=== PATIENT | male | born 1950 | race Caucasian/White ===

== ENCOUNTER 2017-07-25 10:25 | Day surgery (SDC) | payer MEDICARE ==
[~2017-07-25] VITALS: Ht 182.9 cm; Wt 97.4 kg
[~2017-07-25 10:25] MED LIST: CARV12.52 PO; GEMF600T PO; HYDR12.56 PO; LISI-366 PO
[2017-07-25] MEDS ORDERED: NS 1000 ML IV SCH (10:45)
[2017-07-25] MEDS ORDERED: MUPIROCIN 2% OINT 1 APPLIC/GM SYR NASAL SCH (10:45)
[2017-07-25] MEDS ORDERED: POVIDONE IODINE 5% (ANTISEPSIS KIT) 4 APPLICATIONS EACH NARE SCH (10:45)
[2017-07-25] MEDS ORDERED: CHLORHEXIDINE GLUCONATE 2 % 1 PACK (2 CLOTHS) TOPICAL SCH (10:45)
[2017-07-25] MEDS ORDERED: ceFAZolin 2 GM PREMIX 50 ML IV SCH (10:45)
[2017-07-25 11:00] VITALS: BP 177/103; PULSE 72; RESP 18; TEMP 98.1; O2SAT 97
[2017-07-25] MEDS ORDERED: METOPROLOL TARTRATE 25 MG TAB PO PRN (11:00)
[2017-07-25] MEDS ORDERED: HYDR25TA5 PO (11:08)
[2017-07-25] MEDS ORDERED: XARE20TA PO (11:08)
[2017-07-25] MEDS ORDERED: CARV12.52 PO (11:08)
[2017-07-25] MEDS ORDERED: LISI40TA PO (11:08)
[2017-07-25 11:18] LABS: AUTOMATED NEUTROPHIL # 7.2 TH/MM3 (1.8-7.7); BASOPHIL # 0.1 TH/MM3 (0-0.2); BASOPHIL % 0.7 % (0.0-2.0); EOSINOPHIL # 0.2 TH/MM3 (0-0.4); EOSINOPHIL % 1.7 % (0.0-4.0); HEMATOCRIT 44.8 % (39.0-51.0); HEMOGLOBIN 15.4 GM/DL (13.0-17.0); LYMPH % 12.7 % (9.0-44.0); LYMPHOCYTE # 1.2 TH/MM3 (1.0-4.8); MEAN CORPUSCULAR HEMOGLOBIN 31.4 PG (27.0-34.0); MEAN CORPUSCULAR HGB CONC 34.4 % (32.0-36.0); MEAN PLATELET VOLUME 8.2 FL (7.0-11.0); MONOCYTE # 0.7 TH/MM3 (0-0.9); NEUT % 76.9 % (16.0-70.0); PLATELET COUNT 184 TH/MM3 (150-450); RED BLOOD COUNT 4.92 MIL/MM3 (4.50-5.90); RED CELL DISTRIBUTION WIDTH 13.3 % (11.6-17.2); WHITE BLOOD COUNT 9.4 TH/MM3 (4.0-11.0)
[2017-07-25 11:32] LABS: BICARBONATE 29.7 MEQ/L (21.0-32.0); CALCIUM 9.1 MG/DL (8.5-10.1); CREATININE 0.97 MG/DL (0.60-1.30)
[2017-07-25] MEDS ORDERED: PROPOFOL 200 MG/20 ML AMP IV ONE (12:00)
[2017-07-25] MEDS ORDERED: LIDOCAINE HCL 1% PF 5 ML SYRINGE OTHER ONE (12:00)
[2017-07-25] MEDS ORDERED: MIDAZOLAM HCL 2 MG/2 ML VIAL ONE ×2 (13:23→15:03)
[2017-07-25] MEDS ORDERED: GENTAMICIN SULFATE 80 MG/2 ML VIAL ONE (13:29)
[2017-07-25] MEDS ORDERED: SODIUM CHLOR 0.9% 250 ML INJ 250 ML ONE ×2 (13:29→13:36)
[2017-07-25] MEDS ORDERED: ceFAZolin INJ 1,000 MG VIAL ONE (13:29)
[2017-07-25] MEDS ORDERED: LIDOCAINE HCL 2% 50 ML VIAL ONE (13:29)
[2017-07-25] MEDS ORDERED: VANCOMYCIN HCL 1000 MG VIAL ONE ×2 (13:29→13:36)
[2017-07-25] MEDS ORDERED: PROPOFOL 200 MG/20 ML AMP ONE (14:37)
--- NOTE | 2017-07-25 15:16 | CATHPROC ---
Patient Name: KYLE GROSS Study #: [id number] Initial MD: Jony Garcia Date of : 1950 Study Date: 07/25/2017 Cardiac Catheterization Report 07/25/2017 3:17:41 PM Financial #: [id number] 1 of 7 Patient Name: KYLE GROSS Study #: [id number] Initial MD: Jony Garcia Date of : 1950 Study Date: 07/25/2017 Entire Case Report Patient Information Patient Name KYLE GROSS Date of 1950 Age 67 years Financial # [id number] Gender M AlternateID Lab Number 6 Room Number DC02 Height (in) 72.0 Height (cm) 182.8 BSA 2.20 Weight (lbs) 214.3 Weight (kg) 97.4 Patient Address/Phone Number Home Address [facility] Home Phone Number [phone] [facility] [address] [place], [place] [id number] Study Information Study Number Admission Scheduled Start Study Start [id number] Jul 25 2017 10:25AM 07/25/2017 Jul 25 2017 1:02PM [place] [facility] Cardiac Pacer/ICD Admit Source Facility Department Other [facility] Physician and Clinical Staff Initial Jony Bojorquez Counter Former Raulito Bailey,RT(R) Other Anesthesia, FIRMWARE ENGINEER Recorder Poly Torres,SETH Scrub Judi Gutierrez RCIS 07/25/2017 3:17:41 PM Financial #: [id number] 2 of 7 Patient Name: KYLE GROSS Study #: [id number] Initial MD: Jony Garcia Date of : 1950 Study Date: 07/25/2017 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 Description Size Mfg Part Number Used/Scraped [id number] 13:04 [employer] DRAPE, IOBAN 2 [id number] 26cm x 20cm Used *[id number]-1103 13:04 [employer] SUTURE, STRIP PLUS 1/2" * Used *[id number] 13:04 MEDLINE PACER ADHESIVE, MASTISOL 2/3CC 2/3CC 0523-48 Used 13:04 MEDLINE PACER OAKLEY, LIMB * 2530 *[id number] Used [id number] 13:04 MEDLINE PACER PACK, PACER CUSTOM * Used *[id number] 13:04 MEDLINE PACER PEN, SKIN DUAL W/ RULER * Used *[id number] 13:42 Needle Sponge Count 1 111 Used 13:41 Needle Sponge Count 2 2 Used 13:41 Needle Sponge Count 25 1 Used 14:14 Needle Sponge Count 35 Used [id number] *94625 SUTURE, 2-0 VICRYL [CT1] ([id number]) SUTURE, 2-0 VICRYL [CT1] (YYQ350D) SUTURE, 4-0 VICRYL [PS2] (BAK197Q) [id number] 13:04 [employer] BL[employer]ET,WARM AIR CCL * Used *[id number] 14:27 [employer] MEDICAL DEFIBRILLATOR, UNIFY ASSURA VVED-DDDRV [id number] Used [facility] PAD, ELECTROSURGICAL 13:04 * [id number] *[id number] Used [employer]GICAL GROUNDING ORANGE [id number] 13:04 [employer] PAULINO. / * Used *41723 Equipment Model, Serial, Lot Number and Expiration Data Description Model Number Serial Number Lot Number Expiration Date DEFIBRILLATOR, UNIFY ASSURA [id number] 01-31-2019 Insurance Information Insurance Payor Medicare, Private Health Insurance Third Democrat Third Democrat Number MEDICARE A B MCRAB History: Risk Factors Hypertension Dyslipidemia Yes Yes Labs 07/25/2017 3:17:41 PM Financial #: [id number] 3 of 7 Patient Name: KYLE GROSS Study #: [id number] Initial MD: Jnoy Garcia Date of : 1950 Study Date: 07/25/19 18 Hgb (g/dl) Hct (%) RBC (MIL/MM3) WBC (l/cumm) Platelets (thousands) 11.60-17.00 35.00-51.00 4.00-5.90 4.00-11.00 150.00-450.00 15.0 44 4.9 9.4 184 Glucose (mg/dl) BUN (mg/dl) Creatinine (mg/dl) BUN:Creatinine (1:x) 74.00-106.00 7.00-18.00 0.50-1.30 10.00-20.00 122 17 0.9 18.9 Na (meq/l) K (meq/l) 136.00-145.00 3.50-5.10 142 4 PT (sec) PTT (sec) INR (PTT:PT) 9.80-11.60 24.30-30.10 0.90-1.10 10 26.7 1 Medication Medication Total Dose (Bolus/Oral) Medication Total Dosage/Unit 2% XYLOCAINE 50 mL JENNIFER 1 g Medications (Bolus/Oral) Medication Time Given Dosage/Unit Administered By Reason 2% XYLOCAINE 07/25/2017 2:03:57 PM 50 mL Jony Garcia 50 mL 2% XYLOCAINE given by Jony Garcia in Left shoulder via Subcutaneous. JENNIFER 07/25/2017 2:31:46 PM 1 g Jony Garcia 1 g JENNIFER given by Jony Garcia in Left shoulder. Medication (Drip) Medication Time Given Dosage/Unit Concentration/Unit Diluent (ml) Solution ANCEF 07/25/2017 1:45:20 PM 2 g 2 g ANCEF given by Anesthesia, FIRMWARE ENGINEER via Peripheral IV. Ordered by Jony Garcia. VANCOMYCIN DRIP 07/25/2017 1:45:00 PM 1 g 1 g VANCOMYCIN DRIP given by Anesthesia, FIRMWARE ENGINEER via Peripheral IV. 07/25/2017 3:17:41 PM Financial #: [id number] 4 of 7 Patient Name: KYLE GROSS Study #: [id number] Initial MD: Jony Garcia Date of : 1950 Study Date: 07/25/2017 Initial Case Assessment Cardiovascular HR NIBP Chest Pain 78 200/105 0 Edema Present Skin color Skin None Normal Warm Dry Neurological State Oriented to time-place- Alert Moves all extremities person Respiration - General Respiration Rate SpO2 (%) (B/min) 20 97 Final Case Assessment Cardiovascular HR Rhythm NIBP Chest Pain 82 paced 154/88 0 Respiration - General Respiration Rate SpO2 (%) O2 (lpm) (B/min) 12 96 2 Chronological Log Time Study Chronological Log 13:15:58 Patient arrived via Bed. 13:15:59 Patient Name, D.O.B, / Armband Verified By R.N. 13:16:00 Anesthesia at bedside. Assumes care of patient. 13:16:00 Consent signed by the physician and the patient and verified by the [facility] staff. 13:16:01 Pre-op and post- op instructions given; patient acknowledges understanding of instructions. 13:16:02 Verbal Stimulation=2 Physical Stimulation=2 Airway=2 Respiration=2 TOTAL=8. (0=absent, 1=li mited, 2=present) 13:16:42 Disposable Defibrillator Pads Placed On Patient. 13:16:58 Moi Prominences Protected 13:16:58 2% CHLORHEXIDINE GLUCONATE WASH AND NASAL SWIPE DONE PRIOR TO PROCEDURE. 13:36:15 Patient Warmer Placed on the Table. 13:37:12 IV Warmer Connected To Patient. 13:37:17 A # 20 IV was noted in the Antecubital (left). Grade = 0 07/25/2017 3:17:41 PM Financial #: [id number] 5 of 7 Patient Name: KYLE GROSS Study #: [id number] Initial MD: Jony Garcia Date of : 1950 Study Date: 07/25/2017 Assessment: Initial Case, HR=78 BPM, XSHX=081/105 mmhg, Chest Pain=0, Edema=None, Color=Normal, Skin = Warm, Dry 13:37:39 Neurological: State=Alert, Ox3, CONWAY Respiration: Resp=20 B/min, SpO2=97 % 13:38:30 Left Upper Chest Prepped Times Two. First Sponge And Instrument Count Done by Poly Torres RN. 13:39:11 Hypo's: 2, Sponges: 35, Bovie/scratch: 1 Sutures: 3, Blades: 2, Instruments: 26, Syveck Patches: ~SYVECK PATCH~ 13:45:00 1 g VANCOMYCIN DRIP given by Anesthesia, FIRMWARE ENGINEER via Peripheral IV. 13:45:20 2 g ANCEF given by Anesthesia, FIRMWARE ENGINEER via Peripheral IV. Ordered by Jony Garcia. 13:55:16 MD arrived. Time Out. Correct patient, procedure, procedure equipment, site and side verified with physicia n present. Time 14:00:06 concurred by MD, individual staff and FIRMWARE ENGINEER. 14:00:37 Reference ECG taken 14:03:46 Case Start 14:03:57 50 mL 2% XYLOCAINE given by Jony Garcia in Left shoulder via Subcutaneous. 14:04:47 Surgical Incision Made. 14:20:14 A pocket was created at the L Upper Chest. 14:22:40 A device was explanted. 14:23:08 one antibiotic sponge put into the surgical pocket. 14:25:47 Antibiotic sponge removed from the surgical pocket. A DEFIBRILLATOR, UNIFY ASSURA VVED-DDDRV was connected and placed in the pocket. Device enclose d in Tyrex 14:26:06 Absorbable Antimicrobial Envelope and placed in the pocket. 14:31:46 1 g JENNIFER given by Jony Garcia in Left shoulder. 14:32:53 The leads impedance and threshold being tested. 14:34:08 for medications and vitals see anesthesia flowsheet Second Sponge And Instrument Count Done by Poly Torres, SETH. 14:36:00 Hypo's: 2, Sponges: 35, Bovie/scratch: 1 Sutures: 3, Blades: 2, Instruments: 26, Syveck Patches: ~SYVECK PATCH~ 14:41:39 The DFT was Success at 20 Joules, 50 Ohms lead impedance and 3.8 second charge time. 14:45:28 Closing the pocket. 14:53:06 The pocket was closed. 14:53:08 Case End The Final Sponge And Instrument Count Done by Poly Torres, SETH. 14:53:32 Hypo's: 2, Sponges: 35, Bovie/scratch: 1 Sutures: 3, Blades: 2, Instruments: 26, Syveck Patches: ~SYVECK PATCH~ Assessment: Final Case, HR=82 BPM, Rhythm=paced, SFKH=474/88 mmhg, Chest Pain=0 14:58:54 Respiration: Resp=12 B/min, SpO2=96 %, O2=2 lpm 14:59:19 Sterile dressing applied to site 14:59:20 No case complications noted. 14:59:21 Cine recording checked. 14:59:24 Bedside Report will be given. 14:59:26 Implantable Device card placed in patient's chart. 07/25/2017 3:17:41 PM Financial #: [id number] 6 of 7 Patient Name: KYLE GROSS Study #: [id number] Initial MD: Jony Garcia Date of : 1950 Study Date: 07/25/2017 15:03:14 Patient moved to bed 15:04:28 Defibrillator and ground pads removed. Skin intact. 15:05:45 Patient transported to DOCU. End Study - Contrast Media Used In Study Contrast Total Opened (mL) Total Used (mL) Total Wasted (mL) Unspecified 0 0 0 End Study - Maximum Contrast Load Max Contrast Load (mL) 541.2 End Study - Radiation Exposure Fluoro Time (minutes) 0.2 End Study - Patient Disposition Complications Transferred To Interventional Outcome No Telemetry Bed successful 07/25/2017 3:17:41 PM Financial #: [id number]
--- NOTE | 2017-07-26 12:11 | MP ---
cc: KHANG WEBBER DATE: 07/26/2017 INDICATION 1. End-of-life of [place] dual-chamber biventricular defibrillator. 2. Congestive heart failure 3. Cardiomyopathy 4. Last [employer] last device replacement in 09/2010. PROCEDURE PERFORMED 1. Explantation of end-of-life [place] dual-chamber biventricular defibrillator. 2. Placement of a new dual-chamber biventricular defibrillator. 3. Testing of [place] dual-chamber by ventricle defibrillator system. ACCESS SITE: Left upper subclavicular area. SEDATION: Sedation provided by anesthesia. MEDICATIONS Ancef IV Vancomycin IV. EQUIPMENT USED: [employer] [place] model CD 3357 - 40C dual-chamber biventricular defrillator, serial number [id number]. Right atrial lead is [place] model 1788 p.c. / 46 centimeters Right atrial lead serial number [id number]. Right ventricle lead is [place] [place] model 1591 / 65. Right ventricular lead serial number [id number]. Left ventricle lead [place] [place] model 1058, T / 75 cm left coronary sinus lead serial NUMBER [id number]. All leads placed 06/17/2006. LEAD TESTING: Right atrial lead P-wave 5.0 mV, lead impendence 360 ohms, pacing threshold 0.5 volts 0.5 milliseconds, right-ventricular leads, wave 11.4 mV, lead impendence 260 ohms, pacing threshold 1.0 volts at 0.5 milliseconds. The left ventricle lead, lead impedance 490, pacing threshold 1.0 volts at 0.5 milliseconds. Right ventricular ablation was induced on one occasion and terminated with a single 20 joules shock with an impedance of 50 ohms. Parameters mode DDDR, low lower rate 70, upper rate 120. DIAGNOSIS 1. Successful replacement of end-of-life dual-chamber biventricular defibrillator using a new [place] dual-chamber biventricular device. 2. Successful testing and [place] dual-chamber biventricular defibrillator. 3. Defibrillation threshold of 20 joules or less. DISPOSITION Mr. Robertson will be monitored after the procedure. He was given preoperative antibiotics. He will be cleared for a wound check and chronic device reprogramming in our office within 2 weeks. He will then see Dr. Walters for a long-term device followup. MD Tera Norman /2:47 PM /11:56 AM
--- NOTE | 2017-07-26 22:36 | EKG ---
Date Performed: 07/25/2017 Time Performed: 11:20:42 PTAGE: 67 years EKG: Possible AV sequential pacing Pacemaker rhythm - no further analysis Abnormal ECG PREVIOUS TRACING : 02/02/2011 04.08 DOCTOR: Martha Hyatt Interpretating Date/Time 07/26/2017 22:36:40
== END 2017-07-25 17:19 | disposition home or self-care (01) ==
LOC: HCAT 10:25 → HDIC 10:25 → HCAT 17:19
PROVIDERS: ATTEND Internal Medicine Interventional Cardiology
DX: Z45.02 Encounter for adjustment and management of automatic implantable cardiac defibrillator (principal); I50.9 Heart failure, unspecified; I42.9 Cardiomyopathy, unspecified; Z01.818 Encounter for other preprocedural examination; Z01.810 Encounter for preprocedural cardiovascular examination
CPT/HCPCS: 00530; 33264; 80048; 85025; 85610; 85730; 93005; 93641; C1882; J0690; J1580; J2250; J3010; J3370; J7050